=== PATIENT | male | born 2000 | race Two or more races ===

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

== ENCOUNTER 2019-02-19 12:36 | Day surgery (SDC) | payer OTHER ==
[2019-02-19] MEDS ORDERED: CEFAZOLIN 2 GM/50 ML (PMX) 50 ML IVPB (13:30)
[2019-02-19] MEDS: LACTATED RINGER'S 1,000 ML IV (13:42)
[2019-02-19] MEDS ORDERED: FENTAnyl 50 MCG/ML VIAL (14:24)
[2019-02-19] MEDS ORDERED: LIDOCAINE 2% (SDV) 5 ML INJ (14:25)
[2019-02-19] MEDS ORDERED: MIDAZOLAM 1 MG/ML 2 ML INJ (14:25)
[2019-02-19] MEDS ORDERED: PROPOFOL 20 ML (14:25)
[2019-02-19] MEDS ORDERED: CEFAZOLIN 1 GM INJ (14:53)
[2019-02-19] MEDS: BACITRACIN/POLYMYXIN 28.35 GM OINT TOP (14:58)
[2019-02-19] MEDS: LIDOCAINE 1% (MPF) 30 ML INJ (14:58)
[2019-02-19] MEDS: BUPIVACAINE 0.5% (SDV) 30 ML INJ (14:58)
[2019-02-19] MEDS ORDERED: MIDAZOLAM 1 MG/ML 2 ML INJ IV (15:30)
[2019-02-19] MEDS ORDERED: ALBUTEROL 0.083% (NEB) 2.5 MG/3 ML AMP HHN (15:30)
[2019-02-19] MEDS ORDERED: OXYCODONE/ACETAMINOPHEN (5/325) TAB PO ×2 (15:30)
[2019-02-19] MEDS ORDERED: LABETALOL HCL 20MG INJ IV (15:30)
[2019-02-19] MEDS ORDERED: EPHEDrine 25 MG/5 ML SYG IV (15:30)
[2019-02-19] MEDS ORDERED: hydrALAzine 20 MG INJ IV (15:30)
[2019-02-19] MEDS ORDERED: MEPERIDINE 25 MG INJ IV (15:30)
[2019-02-19] MEDS ORDERED: ONDANSETRON 4 MG INJ IV (15:30)
[2019-02-19] MEDS ORDERED: FENTAnyl 50 MCG/ML VIAL IV ×2 (15:30)
[2019-02-19] MEDS ORDERED: KETOROLAC 30 MG INJ IV (15:30)
[2019-02-19] MEDS ORDERED: DIPHENHYDRAMINE 50 MG INJ IV (15:30)
== END 2019-02-19 17:29 | disposition home or self-care (01) ==
LOC: SDS 12:36
DX: L60.0 Ingrowing nail (principal); L03.032 Cellulitis of left toe
CPT/HCPCS: 11750; 88304